=== PATIENT | female | born 1995 | race Caucasian/White ===

== ENCOUNTER → 2017-05-06 13:02 | Outpatient (CLI) | payer MEDICAID ==
[~2017-05-06 13:02] MED LIST: PRENATAL COMPLE1 TAB PO
[2017-05-06 13:44] LABS: APPEARANCE HAZY (CLEAR); BILIRUBIN NEGATIVE (NEGATIVE); COLOR YELLOW (YELLOW); GLUCOSE NEGATIVE (NEGATIVE); KETONE NEGATIVE (NEGATIVE); NITRITE NEGATIVE (NEGATIVE); PROTEIN NEGATIVE (NEGATIVE); UROBILINOGEN NORMAL (NORMAL)
[2017-05-06 13:48] LABS: WHITE CELLS - URINE 0-5 /hpf (0-5)
[2017-05-06 13:49] LABS: BACTERIA MANY /hpf (NONE SEEN); EPITHELIAL CELLS 0-5 /hpf (0-5); RED CELLS - URINE NONE SEEN /hpf (0-5)
[2017-05-18 10:04] VITALS: BMI 36.7
== END | disposition home or self-care (01) ==
LOC: D.LDO 13:02
PROVIDERS: Obstetrics & Gynecology
DX: O26.893 Other specified pregnancy related conditions, third trimester (principal); Z3A.36 36 weeks gestation of pregnancy

== ENCOUNTER → 2017-05-11 19:15 | Outpatient (CLI) | payer MEDICAID ==
[2017-05-11 19:58] LABS: APPEARANCE HAZY (CLEAR); BILIRUBIN NEGATIVE (NEGATIVE); COLOR YELLOW (YELLOW); GLUCOSE NEGATIVE (NEGATIVE); KETONE NEGATIVE (NEGATIVE); NITRITE NEGATIVE (NEGATIVE); PROTEIN NEGATIVE (NEGATIVE); UROBILINOGEN NORMAL (NORMAL)
[2017-05-11 20:03] LABS: AMORPHOUS SEDIMENT <1+ /lpf (NONE SEEN); BACTERIA FEW /hpf (NONE SEEN)
[2017-05-18 10:04] VITALS: BMI 36.7
== END | disposition home or self-care (01) ==
LOC: D.LDO 19:15
PROVIDERS: Obstetrics & Gynecology
DX: O26.893 Other specified pregnancy related conditions, third trimester (principal); Z3A.37 37 weeks gestation of pregnancy

== ENCOUNTER → 2017-05-15 11:05 | Outpatient (CLI) | payer MEDICAID ==
[2017-05-18 10:04] VITALS: BMI 36.7
== END | disposition home or self-care (01) ==
LOC: D.LDO 11:05
DX: O26.893 Other specified pregnancy related conditions, third trimester (principal); Z3A.37 37 weeks gestation of pregnancy; R10.2 Pelvic and perineal pain; M54.9 Dorsalgia, unspecified; R11.0 Nausea

== ENCOUNTER 2017-05-18 09:00 | Inpatient (IN) | payer MEDICAID ==
[~2017-05-18] VITALS: Ht 172.7 cm; Wt 109.3 kg
--- NOTE | ~2017-05-18 | DS ---
PATIENT:PATRICIA TRACEY :89 MEDICAL RECORD: [id number] DISCHARGE SUMMARY ADMISSION DATE: 05/18/17 DISCHARGE DATE: 05/20/17 ADMISSION DATE: 05/18/2017 DATE OF DISCHARGE: 05/20/2017 ADMISSION DIAGNOSIS: Mild preeclampsia at term. DISCHARGE DIAGNOSES: 1. Mild preeclampsia at term, resolving. 2. Mother delivered at term. PROCEDURE: Induction of labor with vaginal delivery. ATTENDING: Nathaly aRmesh MD HISTORY OF PRESENT ILLNESS: See the H&P in the chart. SUMMARY OF HOSPITALIZATION: The patient was admitted to the hospital and received induction of labor, delivered without incident. The patient did not receive magnesium during her intrapartum course. The patient at the time of discharge is doing well without complaint. Blood pressure is 132/77. The patient's discharge medication will be ibuprofen for pain management. She has been instructed in standard precautions and will follow up in 6 weeks. TRANSINT:[id number] Voice Confirmation ID: [id number] DOCUMENT ID: [id number] NATHALY RAMESH MD at 2044 CC: [id number] DICTATION DATE: 05/20/17 0913 SHEET HEATER HELPER: 05/21/17 0715 DIS IN 05/20/17 [facility] [address] [place] [address]
--- NOTE | ~2017-05-18 | OP ---
PATIENT NAME: PATRICIA TRACEY MEDICAL RECORD: [id number] :89 LOCATION:[id number] ADMISSION DATE:05/18/17 SURGEON: NATHALY RAMESH MD DATE OF OPERATION: 05/19/2017 PREDELIVERY DIAGNOSIS: Mild preeclampsia at term. POSTDELIVERY DIAGNOSES: Mild preeclampsia. Mother delivered at term. PROCEDURE: Induction of labor with vaginal delivery. ATTENDING: Dr. Ramesh. ANESTHETIC: Continuous lumbar epidural. FINDINGS: Viable male in the vertex presentation, SUJATHA. Shoulder dystocia relieved with Daniel positioning and rotation of the anterior shoulder counterclockwise. Second degree laceration with a 3-0 and 4-0 chromic repair. The viable male weighed 9 pounds 5 ounces with Apgars 9 and 9. Placenta was delivered spontaneous and intact. EBL 375. DISPOSITION: Mother and recovered in the room. tachycardia noted towards the end of the second stage. Given the patient's length of time with amniotomy and the duration of the induction, I will give a single dose of antibiotics with suspicion of chorioamnionitis with late onset in labor. TRANSINT:[id number] Voice Confirmation ID: [id number] DOCUMENT ID: [id number] NATHALY RAMESH MD at 1821 CC: [id number] DICTATION DATE: 05/19/17 0328 TAPPER HELPER: 05/19/17 1155 DIS IN 05/20/17 [facility] [address] [place] [address]
[2017-05-18 09:59] LABS: HEMATOCRIT 34.4 % (36.0-48.0); HEMOGLOBIN 11.2 g/dL (12-16); MCH 28.5 pg (26.0-34.0); MCHC 32.6 g/dL (31.0-37.0); MCV 87.5 fL (80.0-100.0); MEAN PLATELET VOLUME 10.9 fL (7.4-10.4); RBC 3.93 10x6/uL (4.00-5.40); RDW 15.1 % (11.5-14.5); WBC 11.9 10x3/uL (4.8-10.8)
[2017-05-18 10:04] VITALS: BP 131/65; Ht 172.7 cm; Wt 109.3 kg
[2017-05-18 10:23] LABS: ALBUMIN 2.4 g/dL (3.4-5.0); ALKALINE PHOSPHATASE 195 U/L (46-116); ALT (SGPT) 12 U/L (10-68); BILIRUBIN - TOTAL 0.21 mg/dL (0.2-1.3); CALC OSMOLALITY 275 mosm/kg (275-300); CALCIUM 9.1 mg/dL (8.5-10.1); CARBON DIOXIDE 21.9 mmol/L (21.0-32.0); CHLORIDE - SERUM 105 mmol/L (98-107); CREATININE - SERUM 0.5 mg/dL (0.6-1.3); GLUCOSE 91 mg/dL (74-106); POTASSIUM - SERUM 3.7 mmol/L (3.5-5.1); PROTEIN - SERUM 5.6 g/dL (6.4-8.2); SODIUM 139 mmol/L (136-145); UREA NITROGEN 6 mg/dL (7-18); URIC ACID 7.1 mg/dL (2.6-7.2); eGFR NON AFRICAN AMERICAN > 90 mL/min (90-120)
[2017-05-19 07:14] VITALS: BP 137/71
[2017-05-19 07:26] LABS: RAPID PLASMA REAGIN Non Reactive (Non Reactive)
[2017-05-19 15:23] VITALS: BP 151/81
[2017-05-19 19:20] VITALS: BP 153/84
[2017-05-20 07:25] VITALS: BP 132/77
== END 2017-05-20 15:55 | disposition home or self-care (01) | DRG 775 ==
LOC: D.LD 09:00
PROVIDERS: Obstetrics & Gynecology
PROC: 10907ZC Drainage of Amniotic Fluid, Therapeutic from Products of Conception, Via Natural or Artificial Opening (ICD-10-PCS; principal; 2017-05-19)
PROC: 10E0XZZ Delivery of Products of Conception, External Approach (ICD-10-PCS; 2017-05-19)
PROC: 0KQM0ZZ Repair Perineum Muscle, Open Approach (ICD-10-PCS; 2017-05-19)
DX: O14.04 Mild to moderate pre-eclampsia, complicating childbirth (principal); Z3A.38 38 weeks gestation of pregnancy; Z37.0 Single live birth; O70.1 Second degree perineal laceration during delivery; O66.0 Obstructed labor due to shoulder dystocia